=== PATIENT | male | born 1945 | race African-American/Black ===

== ENCOUNTER → 2017-06-03 | Outpatient (CLI) | payer MEDICARE ==
--- NOTE | 2017-06-03 11:08 | RADIOLOGY REPORT (SQ) ---
EXAM DESCRIPTION: CT CHEST WITHOUT COMPLETED DATE/TIME: 06/03/2017 8:39 am REASON FOR STUDY: COUGH (R05), TOBACCO USE (Z72.0), PERSONAL HX OF NICOTINE DEPENDENCE (Z87.8 Z87.89 1 PERSONAL HISTORY OF NICOTINE DEPENDENCE R05 COUGH COMPARISON: None. TECHNIQUE: CT scan performed of the chest without intravenous contrast. Images reviewed with lung, soft tissue and bone windows. Reconstructed coronal and sagittal MPR images reviewed. All images st ored on PACS. All CT scanners at this facility use dose modulation, iterative reconstruction, and/or weight based d osing when appropriate to reduce radiation dose to as low as reasonably achievable (ALARA). [facility]: Dose Right [facility]: CareDose [facility]: Dose Right [facility]: Teradose 4D [facility]: NanoICE RADIATION DOSE: CT Rad equipment meets quality standard of care and radiation dose reduction techniq ues were employed. CTDIvol: 7.2 mGy. DLP: 291 mGy-cm. mGy. LIMITATIONS: No technical limitations. FINDINGS: LUNGS AND PLEURA: There is a focal ground-glass opacity in the right lung apex best seen o n image number 22 measuring 18 mm with followup recommendations as noted below. Visualized lung fiel ds are otherwise clear. No consolidations or pleural effusions are identified. HILAR AND MEDIASTINAL STRUCTURES: No identified masses or abnormal nodes. No obvious aneurysm. HEART AND VASCULAR STRUCTURES: No aneurysm. There is some focal thickening of the pericardium presum ably representing a small pericardial effusion. The possibility of a pericardial mass cannot be comp letely excluded however. UPPER ABDOMEN: No significant findings. Limited exam. THYROID AND OTHER SOFT TISSUES: No masses. No adenopathy. BONES: A mild thoracic scoliosis convex to the right is identified with some associated degenerative changes. HARDWARE: None in the chest. OTHER: No other significant findings. IMPRESSION: Focal ground-glass opacity in the right lung apex as noted above with followup recommend ations as noted below. Visualized lung parekh are otherwise clear. No consolidations or pleural eff usions are identified. Other findings as noted above COMMENT: Fleischner Criteria for Ground Glass Nodules: >6mm ground glass single nodule: CT 6-12 mo, then CT every 2 yr until 5 yr TECHNICAL DOCUMENTATION: JOB ID: [id number] Quality ID # 436: Final reports with documentation of one or more dose reduction techniques (e.g., Au tomated exposure control, adjustment of the mA and/or kV according to patient size, use of iterative reconstruction technique) 2010 [employer]- All Rights Reserved Reading location - IP/workstation name: [email or web address]
== END ==
LOC: RAD 07:14
PROVIDERS: ATTEND Physician Assistant
DX: R05 Cough (principal); Z87.891 Personal history of nicotine dependence
CPT/HCPCS: 71250

== ENCOUNTER → 2017-06-12 | Outpatient (CLI) | payer MEDICARE, OTHER ==
--- NOTE | 2017-06-12 20:22 | XCELERA REPORT ---
[address] [address] Transthoracic Echocardiogram Report Name: ORLY CHÁVEZ Age: 71 yrs Gender: Male : 1945 Patient Status: Outpatient Patient Location: Study Date: 06/12/2017 09:14 AM Height: 71 in Weight: 171 lb BSA: 2.0 m2 Reason For Study: PERICARDIUM DISEASE Ordering Physician: JUAN HUBER Performed By: Nadeen Arrington Interpretation Summary no LA enlargement. Mild mitral annular calcification, no MS, no MR AV sclerosis, 3 cusps AV, no , no AR. Mild conc. LVH with LVEF 50-55%, no LV diastolic dysfunction, no regional wall motion abn. Mild TR with no pulm hypertension.RVSP 25mm Hg. Calcified pericardium is seen, small pericardial effusion. Bean Weigher didnot do mitral inflow vs respiratory variation assessment to allow for dx of constrictive pericarditis. Since this has never been done in this institution, if suspicion is for constrictive disease, refer pt to a major med centre to have this done, but ultimate diagnosis is by [facility]. MMode/2D Measurements & Calculations RVDd: 3.2 cm LVIDd: 4.6 cm FS: 26.3 % Ao root diam: 3.3 cm IVSd: 1.1 cm LVIDs: 3.4 cm EDV(Teich): 98.6 ml LVPWd: 1.1 cm ESV(Teich): 47.7 ml Ao root area: 8.4 cm2 EF(Teich): 51.6 % LVOT diam: 2.2 cm LVOT area: 3.8 cm2 Doppler Measurements & Calculations MV E max salazar: MV dec slope: Ao V2 max: LV V1 max P.1 cm/sec 237.3 cm/sec2 123.7 cm/sec 5.4 mmHg MV A max salazar: MV dec time: Ao max PG: LV V1 max: 52.8 cm/sec 0.22 sec 6.1 mmHg 115.7 cm/sec MV E/A: 1.0 EDENILSON(V,D): 3.5 cm2 PA V2 max: PI end-d salazar: TR max salazar: 84.5 cm/sec 115.4 cm/sec 235.9 cm/sec PA max PG: TR max P.9 mmHg 22.3 mmHg : JUAN HUBER > Ze Franco
== END ==
LOC: SP 09:37
PROVIDERS: ATTEND Physician Assistant
DX: I31.3 Pericardial effusion (noninflammatory) (principal)
CPT/HCPCS: 93306

== ENCOUNTER → 2019-11-23 | Outpatient (CLI) | payer MEDICARE, OTHER ==
--- NOTE | 2019-11-23 15:40 | RADIOLOGY REPORT (SQ) ---
EXAM DESCRIPTION: CT CHEST WITH IMAGES COMPLETED DATE/TIME: 11/23/2019 3:19 pm REASON FOR STUDY: R91.8 OTHER NONSPECIFIC ABNORMAL FINDING OF LUNG FIELD R91.8 OTHER NONSPECIFIC AB NORMAL FINDING OF LUNG FIELD COMPARISON: 12/05/2017 TECHNIQUE: CT scan of the chest performed using helical scanning technique with dynamic intravenous contrast injection. Images reviewed with lung, soft tissue and bone windows. Reconstructed coronal and sagittal MPR and MIP images reviewed. All images stored on PACS. All CT scanners at this facility use dose modulation, iterative reconstruction, and/or weight based d osing when appropriate to reduce radiation dose to as low as reasonably achievable (ALARA). [facility]: Dose Right [facility]: CareDose [facility]: Dose Right [facility]: Teradose 4D [facility]: [employer] CONTRAST TYPE AND DOSE: contrast/concentration: Isovue 350.00 mmol/ml; Total Contrast Delivered: 80. 0 ml; Total Saline Delivered: 49.0 ml RENAL FUNCTION: Creatinine 1 RADIATION DOSE: CT Rad equipment meets quality standard of care and radiation dose reduction techniq ues were employed. CTDIvol: 9.8 mGy. DLP: 414 mGy-cm. . LIMITATIONS: None. FINDINGS: LUNGS AND PLEURA: Ground-glass sub solid opacity in the right upper lobe. This appears la rger than on the prior study, measuring 21.2 mm. The small nodule seen on image 73 of the previous s tudy is not identified. No new pulmonary nodules are present. There are some calcified pleural plaq ues. HILAR AND MEDIASTINAL STRUCTURES: No identified masses or abnormal nodes. HEART AND VASCULAR STRUCTURES: No aneurysm or dissection. No central pulmonary emboli. No pericardi al effusion. HARDWARE: None in the chest. UPPER ABDOMEN: A couple of cysts are seen in the dome of the liver. THYROID AND OTHER SOFT TISSUES: No masses. No adenopathy. BONES: No significant finding. OTHER: No other significant finding. IMPRESSION: Ground-glass sub solid opacity in the right upper lobe appears slightly larger. The sma ll nodule in the left lower lobe from the previous study is not identified. Calcified pleural plaque s. COMMENT: Fleischner Criteria for Ground Glass Nodules: >6 mm ground glass single nodule: CT 6-12 mo, then CT every 2 yr until 5 yr TECHNICAL DOCUMENTATION: JOB ID: [id number] Quality ID # 436: Final reports with documentation of one or more dose reduction techniques (e.g., Au tomated exposure control, adjustment of the mA and/or kV according to patient size, use of iterative reconstruction technique) 2010 [employer]- All Rights Reserved Reading location - IP/workstation name: [email or web address]
== END ==
LOC: RAD 14:58
PROVIDERS: ATTEND Physician Assistant
DX: R91.8 Other nonspecific abnormal finding of lung field (principal)
CPT/HCPCS: 71260; 82565

== ENCOUNTER → 2019-12-07 | Outpatient (CLI) | payer MEDICARE, OTHER ==
--- NOTE | 2019-12-08 08:44 | RADIOLOGY REPORT (SQ) ---
EXAM DESCRIPTION: PET CT SKULL/THIGH IMAGES COMPLETED DATE/TIME: 12/07/2019 6:04 pm REASON FOR STUDY: R91.1 SOLITARY PULMONARY NODULE R91.1 SOLITARY PULMONARY NODULE COMPARISON: CT chest dated 11/23/2019 RADIONUCLIDE AND DOSE: 9.68 mCi F18 FDG The route of agent administration: Intravenous FASTING BLOOD SUGAR: 92 mg/dl CONTRAST TYPE AND DOSE: No CT contrast given. TECHNIQUE: Blood glucose level was verified. Above dose of FDG was injected intravenously. 2-D seg mented attenuation correction images were obtained from the base of the skull to the midthighs. Nonc ontrast CT images were obtained for attenuation correction and fusion with emission images. CT image s were performed without oral or intravenous contrast and are not sensitive for parenchymal lesions. A series of overlapping emission PET images were obtained. [facility] by the [facility]ologist. Images stored on PACS. LIMITATIONS: None. FINDINGS: HEAD AND NECK: No areas of abnormal metabolic activity in the soft tissues of the head and neck. Physiologic uptake in the right vocal cord. No focal asymmetry on CT images. CHEST: There is increased metabolic activity in the ground-glass opacity in the periphery of the righ t upper lobe. SUV is 2.4. There is abnormal uptake in the mediastinum best demonstrated on image 74 . This correlates to a peritracheal node. SUV is 3.2 suspicious for metastatic disease. There is f ocal uptake in the right hilum with an SUV of 2.6. This could be vascular or represent a small node. ABDOMEN AND PELVIS: There is abnormal uptake in the left lobe of liver. This is asymmetric SUV is 3. 6. No corresponding CT abnormality is noted on prior contrasted CT chest. Recommend CT abdomen pelv is with contrast for further assessment. PROXIMAL LOWER EXTREMITIES: No areas of abnormal metabolic activity in the soft tissues of the lower extremities. BONES: No abnormal metabolic activity in the visualized skeleton. ADDITIONAL CT FINDINGS: No additional significant findings on the noncontrast CT images. OTHER: No other significant findings. IMPRESSION: 1. Increased metabolic activity in the ground-glass opacity in the periphery of the rig ht upper lobe. SUV is 2.4. This is suspicious for neoplasm. Infectious or inflammatory process is thought to be less likely. 2. Abnormal uptake in a peritracheal node with an SUV of 3.2. Uptake in the right hilum could be va scular in nature or could represent a small lymph node. SUV is 2.6. 3. Abnormal uptake in the left lobe of liver with an SUV of 3.6. No corresponding CT abnormality is noted. Recommend CT of the abdomen pelvis with contrast for further assessment. TECHNICAL DOCUMENTATION: JOB ID: [id number] 2010 [employer]- All Rights Reserved Reading location - IP/workstation name: [email or web address]
== END ==
LOC: RAD 13:46
PROVIDERS: ATTEND Internal Medicine Pulmonary Disease
DX: R91.1 Solitary pulmonary nodule (principal)
CPT/HCPCS: 78815; A9552

== ENCOUNTER → 2019-12-23 | Outpatient (CLI) | payer MEDICARE, OTHER ==
--- NOTE | 2019-12-23 13:10 | RADIOLOGY REPORT (SQ) ---
EXAM DESCRIPTION: CT ABD/PELVIS WITH IV ONLY IMAGES COMPLETED DATE/TIME: 12/23/2019 8:34 am REASON FOR STUDY: ABN FINDINGS ON DIAGNOSTIC IMAGING ON LIVER R93.2 ABNORMAL FINDINGS ON DX IMAGING OF LIVER AND BILIARY T COMPARISON: PET-CT 12/07/2019 CT chest 11/23/2019 TECHNIQUE: CT scan of the abdomen and pelvis performed using helical scanning technique with dynamic intravenous contrast injection. No oral contrast. Images reviewed with lung, soft tissue, and bone windows. Reconstructed coronal and sagittal MPR images reviewed. Delayed images for evaluation of the urinary system also acquired. All images stored on PACS. All CT scanners at this facility use dose modulation, iterative reconstruction, and/or weight based d osing when appropriate to reduce radiation dose to as low as reasonably achievable (ALARA). [facility]: Dose Right [facility]: CareDose [facility]: Dose Right [facility]: Teradose 4D [facility]: [employer] CONTRAST TYPE AND DOSE: contrast/concentration: Isovue 350.00 mmol/ml; Total Contrast Delivered: 83. 0 ml; Total Saline Delivered: 39.9 ml RENAL FUNCTION: Creatinine 1 RADIATION DOSE: CT Rad equipment meets quality standard of care and radiation dose reduction techniq ues were employed. CTDIvol: 4.6 - 4.7 mGy. DLP: 454 mGy-cm.. LIMITATIONS: None. FINDINGS: LOWER CHEST: No significant findings. No nodules or infiltrates. LIVER: There are couple of adjacent low-density lesions in the right lobe of the liver of about 2 to 2 9 cm. These have the appearance of cysts. There is a tiny cystic lesion medially and a small 1 in the right lower lobe posteriorly. There is no finding in the left lobe that corresponds to the PET- CT findings. SPLEEN: Normal size. No focal lesions. PANCREAS: No masses. No significant calcifications. No adjacent inflammation or peripancreatic fluid collections. Pancreatic duct not dilated. GALLBLADDER: No identified stones by CT criteria. No inflammatory changes to suggest cholecystitis. ADRENAL GLANDS: No significant masses or asymmetry. RIGHT KIDNEY AND URETER: No solid masses. No significant calcifications. No hydronephrosis or hyd roureter. LEFT KIDNEY AND URETER: No solid masses. No significant calcifications. No hydronephrosis or hydr oureter. AORTA AND VESSELS: No aneurysm. No dissection. Renal arteries, SMA, celiac without stenosis. RETROPERITONEUM: No retroperitoneal adenopathy, hemorrhage or masses. BOWEL AND PERITONEAL CAVITY: No masses or inflammatory changes. No free fluid or peritoneal masses. APPENDIX: Normal. PELVIS: No mass. No free fluid. Normal bladder. ABDOMINAL WALL: No masses. No hernias. BONES: No significant or acute findings. OTHER: No other significant finding. IMPRESSION: There are some hepatic cysts. No metastatic lesion is seen. There is no lesion in the area of concern from the PET-CT. Follow-up as clinically indicated. TECHNICAL DOCUMENTATION: JOB ID: [id number] Quality ID # 436: Final reports with documentation of one or more dose reduction techniques (e.g., Au tomated exposure control, adjustment of the mA and/or kV according to patient size, use of iterative reconstruction technique) 2010 [employer]- All Rights Reserved Reading location - IP/workstation name: [email or web address]
== END ==
LOC: RAD 07:55
PROVIDERS: ATTEND Internal Medicine Pulmonary Disease
DX: K76.89 Other specified diseases of liver (principal); R93.2 Abnormal findings on diagnostic imaging of liver and biliary tract
CPT/HCPCS: 74177

== ENCOUNTER → 2019-12-27 | Outpatient (CLI) | payer MEDICARE, OTHER ==
[2019-12-27 16:01] LABS: ABSOLUTE EOSINOPHILS # (AUTO) 0.1 10^3/uL (0.0-0.6); ABSOLUTE LYMPHOCYTES (AUTO) 1.7 10^3/uL (0.5-4.7); ABSOLUTE MONOCYTES (AUTO) 0.5 10^3/uL (0.1-1.4); ABSOLUTE NEUT (AUTO) 2.4 10^3/uL (1.7-8.2); BASOPHILS % (AUTO) 0.8 % (0-2); EOSINOPHILS % (AUTO) 3.1 % (0-6); HEMOGLOBIN 13.2 g/dL (13.5-17.0); LYMPHOCYTES % (AUTO) 35.3 % (13-45); MEAN CORPUSCULAR HEMOGLOBIN 32.3 pg (27.0-33.4); MEAN CORPUSCULAR HGB CONC 34.8 g/dL (32.0-36.0); MEAN CORPUSCULAR VOLUME 93 fl (80-97); MONOCYTES % (AUTO) 10.4 % (3-13); PLATELET COUNT 211 10^3/uL (150-450); RED CELL DISTRIBUTION WIDTH 14.1 % (11.5-14.0); SEGMENTED NEUTROPHILS % (AUTO) 50.4 % (42-78); TOTAL CELLS COUNTED % (AUTO) 100 %; WHITE BLOOD COUNT 4.8 10^3/uL (4.0-10.5)
[2019-12-27 16:07] LABS: INTERNATIONAL RATION (INR) 0.98; PROTHROMBIN TIME 13.1 SEC (11.4-15.4)
[2019-12-27 16:08] LABS: PARTIAL THROMBOPLASTIN TIME 29.1 SEC (23.5-35.8)
== END ==
LOC: OD 14:47
PROVIDERS: ATTEND Internal Medicine Pulmonary Disease
DX: R91.1 Solitary pulmonary nodule (principal); R93.89 Abnormal findings on diagnostic imaging of other specified body structures; Z79.01 Long term (current) use of anticoagulants
CPT/HCPCS: 36415; 85025; 85610; 85730

== ENCOUNTER 2020-01-05 08:10 | Day surgery (SDC) | payer MEDICARE, OTHER ==
[2020-01-05 09:22] LABS: HEMATOCRIT 35.6 % (37.9-51.0); HEMOGLOBIN 12.7 g/dL (13.5-17.0); MEAN CORPUSCULAR HGB CONC 35.7 g/dL (32.0-36.0); MEAN CORPUSCULAR VOLUME 92 fl (80-97); PLATELET COUNT 185 10^3/uL (150-450); RED BLOOD COUNT 3.86 10^6/uL (4.35-5.55); RED CELL DISTRIBUTION WIDTH 14.5 % (11.5-14.0); WHITE BLOOD COUNT 4.2 10^3/uL (4.0-10.5)
[2020-01-05 09:32] LABS: INTERNATIONAL RATION (INR) 1.03; PROTHROMBIN TIME 13.7 SEC (11.4-15.4)
[2020-01-05 09:33] LABS: PARTIAL THROMBOPLASTIN TIME 27.5 SEC (23.5-35.8)
[2020-01-05 09:47] LABS: BLOOD UREA NITROGEN 11 mg/dL (7-20)
[2020-01-05] MEDS ORDERED: MIDAZOLAM 2 MG/2 ML INJ ONE (10:25)
[2020-01-05] MEDS ORDERED: FENTANYL CITRATE INJ/PF 100 MCG/2 ML AMPUL ONE (10:25)
--- NOTE | 2020-01-05 14:08 | RADIOLOGY REPORT (SQ) ---
EXAM DESCRIPTION: CHEST SINGLE VIEW IMAGES COMPLETED DATE/TIME: 01/05/2020 1:45 pm REASON FOR STUDY: 2 HOUR POST RT LUNG BIOPSY @ ([id number]) COMPARISON: None. EXAM PARAMETERS: NUMBER OF VIEWS: One view. TECHNIQUE: Single frontal radiographic view of the chest acquired. RADIATION DOSE: NA LIMITATIONS: None. FINDINGS: LUNGS AND PLEURA: There is ill-defined opacification the right upper lobe. No pneumothora x. MEDIASTINUM AND HILAR STRUCTURES: No masses. Contour normal. HEART AND VASCULAR STRUCTURES: Heart normal in size. Normal vasculature. BONES: No acute findings. HARDWARE: None in the chest. OTHER: No other significant finding. IMPRESSION: No pneumothorax. Ill-defined opacification in the right upper lobe. TECHNICAL DOCUMENTATION: JOB ID: [id number] 2010 [employer]- All Rights Reserved Reading location - IP/workstation name: [email or web address]
--- NOTE | 2020-01-05 14:16 | RADIOLOGY REPORT (SQ) ---
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 FLUORO TIME: 14.3 seconds. 220 images submitted to PACS. LIMITATIONS: None. PROCEDURE: The procedure, risks, benefits, and alternatives were discussed with the patient in the p reprocedural area, and all questions were answered. Informed consent was obtained verbally and in wri ting. The patient was then brought to the CT suite, positioned prone on the CT gurney, and a time-out was p erformed. After that, axial images of the chest were obtained for targeting of the nodule in the api alejandra segment of the right upper lobe. Based on review of the axial images an appropriate access site was selected on the skin. The area around selected access site was then prepped and draped with 2% chlorhexidine utilizing dilcia dard sterile technique. After that, the access site was infiltrated with 1% lidocaine and an incisio n was made in the skin with a #11 blade. A 19 gauge coaxial needle was then advanced through the skin incision and into the nodule utilizing CT fluoroscopic guidance. After that, the inner stylet of the coaxial needle was removed and 7 20 gauge core samples were obtained - the samples were collected an d submitted to cytopathology in formalin. The coaxial needle was then removed and axial images of the chest were repeated and reviewed ; the im ages demonstrated alveolar hemorrhage around the biopsied nodule. The patient tolerated the procedure well without immediate complication. At the end of the procedure the patient's condition was unchanged from the preprocedural baseline. IV conscious sedation was administered at the direction of the performing physician by a celso herrera. 1 milligrams of Versed and 50 micrograms of fentanyl. Physiologic monitoring was provided befor e, during, and after sedation. The total sedation time was 30 minutes. Documentation of [id number] time the performing proceduralist spent monitoring the patient: 15 min utes. IMPRESSION: Successful CT-guided biopsy of the nodule in the apical segment of the right upper lobe as detailed above. COMMENT: Patient medication list reviewed: Yes- Quality ID# 130:Eligible professional attests to doc umenting in the medical record they obtained, updated, or reviewed the patient's current medications. Quality ID #76: The patient was prepped and draped using maximum sterile barrier technique including cap, mask, sterile gown, sterile gloves, a large sterile sheet, hand hygiene, and 2% Chlorhexidine fo r cutaneous antisepsis. When ultrasound is used, sterile ultrasound techniques are followed requiring sterile gel and sterile probes. Quality ID 145: Final reports for procedures using fluoroscopy that document radiation exposure anibal greer, or exposure time and number of fluorographic images (if radiation exposure indices are not avail able) Quality ID# 436: Final reports with documentation of one or more dose reduction techniques (e.g., Aut omated exposure control, adjustment of the mA and/or kV according to patient size, use of iterative r econstruction technique) TECHNICAL DOCUMENTATION: JOB ID: [id number] 2010 [employer]- All Rights Reserved rev-07/02 Reading location - IP/workstation name: [email or web address]
[2020-01-05 14:42] VITALS: BP 124/77
== END 2020-01-05 14:45 | disposition home or self-care (01) ==
LOC: RAD 08:10
PROVIDERS: ATTEND Internal Medicine Pulmonary Disease
DX: R91.1 Solitary pulmonary nodule (principal); R05 Cough; E78.5 Hyperlipidemia, unspecified; R93.2 Abnormal findings on diagnostic imaging of liver and biliary tract; Z79.01 Long term (current) use of anticoagulants; F17.210 Nicotine dependence, cigarettes, uncomplicated
CPT/HCPCS: 36415; 84520; 82565; 85027; 85610; 85730; 88305 ×2; 71045; 77012; 32405; J2250; J3010